=== PATIENT | female | born 1970 | race African-American/Black ===

== ENCOUNTER 2018-12-30 19:25 | Inpatient (IN) ==
[2018-12-30 20:16] LABS: Basophils % 0.3 % (0.0-0.8); Eosinophils % 0.5 % (0.00-10.9); Hematocrit 36.6 VOL% (35.7-47.0); Hemoglobin 11.3 GM/DL (12.0-16.0); Immature Granulocytes % 0.5 %; Immature Granulocytes Absolute 0.03 #; Lymphocytes # 2.3 10*3/uL (1.4-4.0); Lymphocytes % 35.7 % (21.3-54.2); Mean Corpuscular HGB Conc 30.9 GM/DL (32-36); Mean Corpuscular Volume 92.4 FL (87-102); Monocytes % 9.2 % (1.7-12.7); Neutrophils % 53.8 % (38.7-73.9); Platelet Count 304 T/CUMM (130-400); Red Blood Count 3.96 MC/CUMM (3.8-5.5); Red Cell Distribution Width 13.7 % (9.3-17.3); White Blood Count 6.5 T/CUMM (4-12)
[2018-12-30] MEDS ORDERED: methylPREDNISolone SOD SUC 125 MG/2 ML VIAL IV STA (20:21)
[2018-12-30] MEDS ORDERED: ALBUTEROL/IPRATROPIUM 3 ML NEB RESP TX STA (20:21)
[2018-12-30 20:38] LABS: Albumin 3.6 G/DL (3.4-5.0); Bilirubin,Total 1.2 MG/DL (0.2-1.0); Calcium 8.9 MG/DL (8.5-10.1); Osmolality,Calculated 281.1 MOS/KG (273-304); Total Protein 7.5 G/DL (6.4-8.3)
[2018-12-30] MEDS ORDERED: ASPIRIN EC 325 MG TABLET PO STA (21:02)
[2018-12-30] MEDS ORDERED: SODIUM CHLORIDE 0.9% 1,000 ML IV STA (22:57)
[2018-12-31] MEDS ORDERED: MORPHINE 4 MG/1 ML VIAL IV PRN (01:12)
[2018-12-31] MEDS ORDERED: NICOTINE 21 MG/24 HR PATCH TRANSDERM PRN (01:12)
[2018-12-31] MEDS ORDERED: guaiFENesin/DM ER 600-30 MG TABLET PO PRN (01:12)
[2018-12-31] MEDS ORDERED: BISACODYL 5 MG TABLET PO PRN (01:12)
[2018-12-31] MEDS ORDERED: ONDANSETRON 4 MG/2 ML VIAL IV PRN (01:12)
[2018-12-31] MEDS ORDERED: diphenhydrAMINE CAP 25 MG CAPSULE PO PRN (01:12)
[2018-12-31] MEDS: FUROSEMIDE 40 MG/4 ML VIAL IV SCH ×2 (03:02→13:25)
[2018-12-31] MEDS: cefTRIAXone 1,000 MG in SYRINGE 1 EACH IV SCH ×2 (03:43→13:26)
[2018-12-31] MEDS: ALBUTEROL/IPRATROPIUM 3 ML NEB RESP TX SCH ×3 (07:21→19:34)
[2018-12-31] MEDS ORDERED: LISINOPRIL 5 MG TABLET PO SCH (09:00)
[2018-12-31] MEDS: PANTOPRAZOLE 40 MG TABLET PO SCH (09:05)
[2018-12-31] MEDS: CARVEDILOL 3.125 MG TABLET PO SCH ×2 (09:05→21:08)
[2018-12-31] MEDS: POTASSIUM CHLORIDE 20 MEQ TABLET PO SCH (09:05)
[2019-01-01] MEDS: ALBUTEROL/IPRATROPIUM 3 ML NEB RESP TX SCH ×4 (00:30→18:46)
[2019-01-01] MEDS: FUROSEMIDE 40 MG/4 ML VIAL IV SCH ×2 (00:43→13:56)
[2019-01-01] MEDS: cefTRIAXone 1,000 MG in SYRINGE 1 EACH IV SCH ×2 (01:28→13:56)
[2019-01-01 05:52] LABS: Basophils % 0.4 % (0.0-0.8); Eosinophils % 0.4 % (0.00-10.9); Hematocrit 38.7 VOL% (35.7-47.0); Hemoglobin 11.6 GM/DL (12.0-16.0); Immature Granulocytes % 0.2 %; Immature Granulocytes Absolute 0.02 #; Lymphocytes # 2.6 10*3/uL (1.4-4.0); Lymphocytes % 32.8 % (21.3-54.2); Mean Corpuscular Volume 93.9 FL (87-102); Mean Platelet Volume 10.2 FL (9.6-12.0); Monocytes % 10.9 % (1.7-12.7); Neutrophils % 55.3 % (38.7-73.9); Platelet Count 306 T/CUMM (130-400); Red Blood Count 4.12 MC/CUMM (3.8-5.5); Red Cell Distribution Width 13.8 % (9.3-17.3); White Blood Count 8.1 T/CUMM (4-12)
[2019-01-01 06:07] LABS: Calcium 8.6 MG/DL (8.5-10.1); Osmolality,Calculated 286.1 MOS/KG (273-304)
[2019-01-01] MEDS: POTASSIUM CHLORIDE 20 MEQ TABLET PO SCH (08:11)
[2019-01-01] MEDS: SPIRONOLACTONE 25 MG TABLET PO SCH (08:11)
[2019-01-01] MEDS: PANTOPRAZOLE 40 MG TABLET PO SCH (08:11)
[2019-01-01] MEDS: CARVEDILOL 3.125 MG TABLET PO SCH ×2 (08:11→20:03)
[2019-01-01] MEDS: ACETAMINOPHEN 325 MG TABLET PO PRN (17:13)
[2019-01-01] MEDS: SACUBITRIL/VALSARTAN 49-51 MG TABLET PO SCH (20:03)
[2019-01-02] MEDS: ALBUTEROL/IPRATROPIUM 3 ML NEB RESP TX SCH ×4 (00:48→18:40)
[2019-01-02] MEDS: cefTRIAXone 1,000 MG in SYRINGE 1 EACH IV SCH (02:04)
[2019-01-02] MEDS: FUROSEMIDE 40 MG/4 ML VIAL IV SCH (02:10)
[2019-01-02 05:28] LABS: Basophils % 0.6 % (0.0-0.8); Eosinophils # 0.1 10*3/uL (0.0-0.87); Eosinophils % 1.3 % (0.00-10.9); Hematocrit 42.6 VOL% (35.7-47.0); Hemoglobin 13.3 GM/DL (12.0-16.0); Immature Granulocytes % 0.3 %; Immature Granulocytes Absolute 0.02 #; Lymphocytes # 2.8 10*3/uL (1.4-4.0); Lymphocytes % 45.1 % (21.3-54.2); Mean Corpuscular HGB Conc 31.2 GM/DL (32-36); Mean Corpuscular Volume 92.4 FL (87-102); Mean Platelet Volume 10.3 FL (9.6-12.0); Monocytes % 12.1 % (1.7-12.7); Neutrophils % 40.6 % (38.7-73.9); Platelet Count 350 T/CUMM (130-400); Red Blood Count 4.61 MC/CUMM (3.8-5.5); Red Cell Distribution Width 13.8 % (9.3-17.3); White Blood Count 6.3 T/CUMM (4-12)
[2019-01-02 05:48] LABS: Calcium 8.8 MG/DL (8.5-10.1); Osmolality,Calculated 276.5 MOS/KG (273-304)
[2019-01-02] MEDS: POTASSIUM CHLORIDE 20 MEQ TABLET PO SCH (08:24)
[2019-01-02] MEDS: PANTOPRAZOLE 40 MG TABLET PO SCH (08:24)
[2019-01-02] MEDS: CARVEDILOL 3.125 MG TABLET PO SCH ×2 (08:25→21:32)
[2019-01-02] MEDS: ACETAMINOPHEN 325 MG TABLET PO PRN (08:26)
[2019-01-02] MEDS: SPIRONOLACTONE 25 MG TABLET PO SCH (08:29)
[2019-01-02] MEDS: SACUBITRIL/VALSARTAN 49-51 MG TABLET PO SCH ×2 (08:29→21:32)
[2019-01-02] MEDS: FUROSEMIDE 40 MG TABLET PO SCH (15:38)
[2019-01-03] MEDS: ALBUTEROL/IPRATROPIUM 3 ML NEB RESP TX SCH ×2 (00:35→07:14)
[2019-01-03 04:29] LABS: Basophils % 0.4 % (0.0-0.8); Eosinophils # 0.1 10*3/uL (0.0-0.87); Eosinophils % 1.3 % (0.00-10.9); Hematocrit 42.2 VOL% (35.7-47.0); Immature Granulocytes % 0.3 %; Immature Granulocytes Absolute 0.02 #; Lymphocytes # 2.7 10*3/uL (1.4-4.0); Lymphocytes % 37.3 % (21.3-54.2); Mean Corpuscular HGB Conc 30.8 GM/DL (32-36); Mean Corpuscular Volume 93.4 FL (87-102); Monocytes % 11.7 % (1.7-12.7); Platelet Count 348 T/CUMM (130-400); Red Blood Count 4.52 MC/CUMM (3.8-5.5); Red Cell Distribution Width 13.8 % (9.3-17.3); White Blood Count 7.2 T/CUMM (4-12)
[2019-01-03 04:49] LABS: Calcium 9.1 MG/DL (8.5-10.1); Osmolality,Calculated 282.3 MOS/KG (273-304)
[2019-01-03] MEDS ORDERED: cefTRIAXone 1,000 MG in SYRINGE 1 EACH IV SCH (09:00)
[2019-01-03] MEDS: SACUBITRIL/VALSARTAN 49-51 MG TABLET PO SCH (10:32)
[2019-01-03] MEDS: CARVEDILOL 3.125 MG TABLET PO SCH (10:32)
[2019-01-03] MEDS: PANTOPRAZOLE 40 MG TABLET PO SCH (10:32)
[2019-01-03] MEDS: SPIRONOLACTONE 25 MG TABLET PO SCH (10:32)
[2019-01-03] MEDS: POTASSIUM CHLORIDE 20 MEQ TABLET PO SCH (10:32)
[2019-01-03] MEDS: FUROSEMIDE 40 MG TABLET PO SCH (10:32)
[2019-01-03 11:40] VITALS: BP 103/68
== END 2019-01-03 13:34 | disposition home or self-care (01) | DRG 292 ==
LOC: N.EDINP 19:25 → N.ED 19:25 → SUATTDRO 12-31 01:12 → N.5E 12-31 01:46
PROVIDERS: ATTEND Internal Medicine

== ENCOUNTER 2019-07-09 01:17 | Inpatient (IN) ==
[2019-07-09] MEDS ORDERED: INFLUENZA VIRUS VACCINE 0.5 ML SYRINGE IM ONE (04:04)
[2019-07-09] MEDS ORDERED: ALBUTEROL/IPRATROPIUM 3 ML NEB RESP TX PRN (05:41)
[2019-07-09] MEDS ORDERED: FUROSEMIDE 40 MG/4 ML VIAL IV ONE (05:42)
[2019-07-09 05:51] LABS: Basophils % 0.4 % (0.0-0.8); Eosinophils % 0.7 % (0.00-10.9); Hematocrit 34.1 VOL% (35.7-47.0); Hemoglobin 10.5 GM/DL (12.0-16.0); Immature Granulocytes % 0.2 %; Immature Granulocytes Absolute 0.01 #; Lymphocytes # 1.9 10*3/uL (1.4-4.0); Lymphocytes % 35.4 % (21.3-54.2); Mean Corpuscular HGB Conc 30.8 GM/DL (32-36); Mean Corpuscular Volume 91.9 FL (87-102); Mean Platelet Volume 10.2 FL (9.6-12.0); Monocytes % 9.7 % (1.7-12.7); Neutrophils % 53.6 % (38.7-73.9); Platelet Count 248 T/CUMM (130-400); Red Blood Count 3.71 MC/CUMM (3.8-5.5); Red Cell Distribution Width 15.6 % (9.3-17.3); White Blood Count 5.5 T/CUMM (4-12)
[2019-07-09] MEDS ORDERED: MAGNESIUM SULF RIDER 4 GM in PREMIX 1 EACH IV PRN (06:00)
[2019-07-09] MEDS ORDERED: MAGNESIUM SULF RIDER 2 GM in PREMIX 1 EACH IV PRN (06:00)
[2019-07-09] MEDS ORDERED: methylPREDNISolone SOD SUC 125 MG/2 ML VIAL IV ONE (06:00)
[2019-07-09] MEDS ORDERED: ALBUTEROL 2.5 MG/3 ML NEB RESP TX PRN (06:01)
[2019-07-09] MEDS ORDERED: DOCUSATE SODIUM 100 MG CAPSULE PO PRN (06:01)
[2019-07-09] MEDS ORDERED: ONDANSETRON 4 MG/2 ML VIAL IV PRN (06:01)
[2019-07-09] MEDS ORDERED: ALBUTEROL/IPRATROPIUM 3 ML NEB RESP TX STA (06:19)
[2019-07-09 06:22] LABS: Albumin 3.7 G/DL (3.4-5.0); Bilirubin,Total 2.3 MG/DL (0.2-1.0); Calcium 8.8 MG/DL (8.5-10.1); Osmolality,Calculated 278.4 MOS/KG (273-304); Total Protein 8.2 G/DL (6.4-8.3)
[2019-07-09 06:28] LABS: Apearance,Urine CLEAR (Clear); Bilirubin,Urine Negative (Negative); Blood, Urine Negative (Negative); Glucose,Urine (UA) Negative (Negative); Hyaline Casts,Urine 8 /LPF (0-3); Ketones,Urine Negative (Negative); Mucus,Urine Occasional /LPF (Occasional); Nitrite,Urine Negative (Negative); Protein,Urine 30 MG/DL; RBC,Urine 1 /HPF (0-4); Squamous Epithelial Cell,Urine Occasional /HPF (0-10); Urine Color Yellow (Yellow); Urine Specific Gravity 1.012 (1.001-1.035); Urine Urobilinogen < 2.0 EU/DL (0.2-1.0); WBC,Urine <1 /HPF (0-6)
[2019-07-09] MEDS: ENOXAPARIN 40 MG/0.4 ML SYRINGE SUBCUT SCH (06:37)
[2019-07-09] MEDS: ALBUTEROL/IPRATROPIUM 3 ML NEB RESP TX SCH ×3 (07:55→19:43)
[2019-07-09] MEDS: carvediloL 6.25 MG TABLET PO SCH ×2 (09:31→17:20)
[2019-07-09] MEDS: SACUBITRIL/VALSARTAN 49-51 MG TABLET PO SCH ×2 (09:31→21:39)
[2019-07-09] MEDS: PANTOPRAZOLE 40 MG TABLET PO SCH (09:31)
[2019-07-09] MEDS: POTASSIUM CHLORIDE 20 MEQ TABLET PO PRN ×3 (09:31→14:00)
[2019-07-09] MEDS: ASPIRIN EC 81 MG TABLET PO SCH (09:31)
[2019-07-09] MEDS: FLECAINIDE 100 MG TABLET PO SCH ×2 (09:42→21:39)
[2019-07-09] MEDS: FUROSEMIDE 40 MG/4 ML VIAL IV SCH (17:20)
[2019-07-09] MEDS: ACETAMINOPHEN 325 MG TABLET PO PRN ×2 (18:35→23:49)
[2019-07-09] MEDS ORDERED: methylPREDNISolone SOD SUC 40 MG/1 ML VIAL IM SCH (19:00)
[2019-07-09] MEDS: methylPREDNISolone SOD SUC 40 MG/1 ML VIAL IV SCH (19:24)
[2019-07-10] MEDS: ALBUTEROL/IPRATROPIUM 3 ML NEB RESP TX SCH ×5 (00:41→20:25)
[2019-07-10 05:16] LABS: Basophils % 0.1 % (0.0-0.8); Hematocrit 37.3 VOL% (35.7-47.0); Hemoglobin 11.5 GM/DL (12.0-16.0); Immature Granulocytes % 0.3 %; Immature Granulocytes Absolute 0.03 #; Lymphocytes # 0.9 10*3/uL (1.4-4.0); Mean Corpuscular HGB Conc 30.8 GM/DL (32-36); Mean Corpuscular Volume 92.8 FL (87-102); Mean Platelet Volume 9.9 FL (9.6-12.0); Neutrophils % 84.6 % (38.7-73.9); Platelet Count 261 T/CUMM (130-400); Red Blood Count 4.02 MC/CUMM (3.8-5.5); Red Cell Distribution Width 15.2 % (9.3-17.3)
[2019-07-10 05:50] LABS: Calcium 8.6 MG/DL (8.5-10.1); Osmolality,Calculated 285.3 MOS/KG (273-304)
[2019-07-10 05:54] LABS: Calcium 8.5 MG/DL (8.5-10.1); Osmolality,Calculated 281.5 MOS/KG (273-304); Risk Ratio 2.32; VLDL CHOLESTEROL 18.6 MG/DL
[2019-07-10] MEDS: ENOXAPARIN 40 MG/0.4 ML SYRINGE SUBCUT SCH (06:17)
[2019-07-10] MEDS: methylPREDNISolone SOD SUC 40 MG/1 ML VIAL IV SCH ×2 (06:31→21:18)
[2019-07-10] MEDS: SACUBITRIL/VALSARTAN 49-51 MG TABLET PO SCH ×2 (08:47→21:21)
[2019-07-10] MEDS: carvediloL 6.25 MG TABLET PO SCH ×2 (08:47→17:51)
[2019-07-10] MEDS: PANTOPRAZOLE 40 MG TABLET PO SCH (08:47)
[2019-07-10] MEDS: FUROSEMIDE 40 MG/4 ML VIAL IV SCH ×2 (08:48→17:51)
[2019-07-10] MEDS: FLECAINIDE 100 MG TABLET PO SCH ×2 (08:48→21:21)
[2019-07-10] MEDS: ASPIRIN EC 81 MG TABLET PO SCH (08:48)
[2019-07-11] MEDS: ALBUTEROL/IPRATROPIUM 3 ML NEB RESP TX SCH ×4 (02:00→20:48)
[2019-07-11 05:59] LABS: Basophils % 0.1 % (0.0-0.8); Eosinophils % 0.1 % (0.00-10.9); Hematocrit 39.9 VOL% (35.7-47.0); Hemoglobin 12.4 GM/DL (12.0-16.0); Immature Granulocytes % 0.5 %; Immature Granulocytes Absolute 0.06 #; Lymphocytes # 1.1 10*3/uL (1.4-4.0); Mean Corpuscular HGB Conc 31.1 GM/DL (32-36); Mean Corpuscular Volume 91.9 FL (87-102); Monocytes % 4.4 % (1.7-12.7); Neutrophils % 85.9 % (38.7-73.9); Platelet Count 304 T/CUMM (130-400); Red Blood Count 4.34 MC/CUMM (3.8-5.5); Red Cell Distribution Width 15.4 % (9.3-17.3); White Blood Count 12.7 T/CUMM (4-12)
[2019-07-11 06:32] LABS: Osmolality,Calculated 277.8 MOS/KG (273-304)
[2019-07-11] MEDS: ENOXAPARIN 40 MG/0.4 ML SYRINGE SUBCUT SCH (06:51)
[2019-07-11] MEDS: FLECAINIDE 100 MG TABLET PO SCH (08:57)
[2019-07-11] MEDS: ASPIRIN EC 81 MG TABLET PO SCH (08:57)
[2019-07-11] MEDS: SACUBITRIL/VALSARTAN 49-51 MG TABLET PO SCH ×2 (08:57→20:39)
[2019-07-11] MEDS: PANTOPRAZOLE 40 MG TABLET PO SCH (08:58)
[2019-07-11] MEDS: FUROSEMIDE 40 MG/4 ML VIAL IV SCH ×2 (08:58→16:26)
[2019-07-11] MEDS: methylPREDNISolone SOD SUC 40 MG/1 ML VIAL IV SCH ×2 (09:01→20:39)
[2019-07-11] MEDS: carvediloL 6.25 MG TABLET PO SCH ×2 (09:10→16:26)
[2019-07-12] MEDS: ALBUTEROL/IPRATROPIUM 3 ML NEB RESP TX SCH ×2 (01:28→07:07)
[2019-07-12 05:17] LABS: Basophils % 0.1 % (0.0-0.8); Eosinophils % 0.1 % (0.00-10.9); Hematocrit 44.8 VOL% (35.7-47.0); Hemoglobin 13.7 GM/DL (12.0-16.0); Immature Granulocytes % 0.3 %; Immature Granulocytes Absolute 0.04 #; Lymphocytes # 2.5 10*3/uL (1.4-4.0); Mean Corpuscular HGB Conc 30.6 GM/DL (32-36); Mean Corpuscular Volume 91.8 FL (87-102); Mean Platelet Volume 9.8 FL (9.6-12.0); Monocytes % 11.8 % (1.7-12.7); Neutrophils % 70.7 % (38.7-73.9); Platelet Count 350 T/CUMM (130-400); Red Blood Count 4.88 MC/CUMM (3.8-5.5); Red Cell Distribution Width 15.7 % (9.3-17.3); White Blood Count 14.7 T/CUMM (4-12)
[2019-07-12 05:37] LABS: Calcium 8.8 MG/DL (8.5-10.1)
[2019-07-12] MEDS ORDERED: ALBUTEROL 0.63 MG/3 ML NEB RESP TX PRN (07:41)
[2019-07-12] MEDS ORDERED: LEVALBUTEROL 0.31 MG/3 ML NEB RESP TX PRN (08:26)
[2019-07-12] MEDS: ASPIRIN EC 81 MG TABLET PO SCH (08:57)
[2019-07-12] MEDS: ENOXAPARIN 40 MG/0.4 ML SYRINGE SUBCUT SCH (08:58)
[2019-07-12] MEDS: FUROSEMIDE 40 MG TABLET PO SCH ×2 (08:58→16:20)
[2019-07-12] MEDS: SACUBITRIL/VALSARTAN 49-51 MG TABLET PO SCH ×2 (08:58→20:51)
[2019-07-12] MEDS: carvediloL 6.25 MG TABLET PO SCH ×2 (08:58→16:20)
[2019-07-12] MEDS: PANTOPRAZOLE 40 MG TABLET PO SCH (08:58)
[2019-07-12] MEDS: methylPREDNISolone SOD SUC 40 MG/1 ML VIAL IV SCH ×2 (08:58→20:52)
[2019-07-13] MEDS: ENOXAPARIN 40 MG/0.4 ML SYRINGE SUBCUT SCH (05:54)
[2019-07-13] MEDS: FUROSEMIDE 40 MG TABLET PO SCH ×2 (08:36→16:37)
[2019-07-13] MEDS: ASPIRIN EC 81 MG TABLET PO SCH (08:37)
[2019-07-13] MEDS: PANTOPRAZOLE 40 MG TABLET PO SCH (08:37)
[2019-07-13] MEDS: methylPREDNISolone SOD SUC 40 MG/1 ML VIAL IV SCH (08:37)
[2019-07-13] MEDS: carvediloL 6.25 MG TABLET PO SCH ×2 (08:37→16:36)
[2019-07-14] MEDS: ENOXAPARIN 40 MG/0.4 ML SYRINGE SUBCUT SCH (07:06)
[2019-07-14] MEDS ORDERED: predniSONE 20 MG TABLET PO SCH (09:00)
[2019-07-14] MEDS ORDERED: FUROSEMIDE 40 MG TABLET PO SCH (09:00)
[2019-07-14] MEDS: carvediloL 6.25 MG TABLET PO SCH (09:55)
[2019-07-14] MEDS: ASPIRIN EC 81 MG TABLET PO SCH (09:55)
[2019-07-14] MEDS: PANTOPRAZOLE 40 MG TABLET PO SCH (09:56)
[2019-07-14] MEDS ORDERED: carvediloL 3.125 MG TABLET PO SCH (14:16)
[2019-07-14 17:03] VITALS: BP 128/98
== END 2019-07-14 18:44 | disposition home health service (06) | DRG 292 ==
LOC: N.CC 03:09 → SUATTDRO 03:09 → N.TELEN 07-11 12:24
PROVIDERS: ADMIT Internal Medicine; ATTEND Internal Medicine

== ENCOUNTER 2020-09-15 14:12 | Inpatient (IN) ==
[2020-09-15] MEDS ORDERED: FUROSEMIDE 40 MG/4 ML VIAL IV STA (14:44)
[2020-09-15 15:23] LABS: Basophils % 0.5 % (0.0-0.8); Hematocrit 36.5 VOL% (35.7-47.0); Hemoglobin 11.3 GM/DL (12.0-16.0); Immature Granulocytes % 0.3 %; Immature Granulocytes Absolute 0.01 #; Lymphocytes # 1.3 10*3/uL (1.4-4.0); Mean Corpuscular Volume 94.1 FL (87-102); Mean Platelet Volume 10.3 FL (9.6-12.0); Monocytes % 9.1 % (1.7-12.7); Neutrophils % 55.1 % (38.7-73.9); Platelet Count 270 T/CUMM (130-400); Red Blood Count 3.88 MC/CUMM (3.8-5.5); Red Cell Distribution Width 13.4 % (9.3-17.3); White Blood Count 3.7 T/CUMM (4-12)
[2020-09-15 15:53] LABS: Albumin 3.4 G/DL (3.4-5.0); Bilirubin,Total 0.6 MG/DL (0.2-1.0); Calcium 8.3 MG/DL (8.5-10.1); Osmolality,Calculated 269.1 MOS/KG (273-304); Potassium 3.7 MMOL/L (3.5-5.1); Total Protein 8.4 G/DL (6.4-8.3)
[2020-09-15 15:56] LABS: Bilirubin,Urine Negative (Negative); Blood, Urine Small mg/dL (Negative); Glucose,Urine (UA) Negative (Negative); Ketones,Urine Negative (Negative); Nitrite,Urine Negative (Negative); Protein,Urine Negative; RBC,Urine <1 /HPF (0-4); Squamous Epithelial Cell,Urine Occasional /HPF (0-10); Urine Appearance CLEAR (Clear); Urine Color Yellow (Yellow); Urine Specific Gravity 1.006 (1.001-1.035); Urine Urobilinogen < 2.0 EU/DL (0.2-1.0); WBC,Urine 1 /HPF (0-6)
[2020-09-15] MEDS ORDERED: ALBUTEROL 2.5 MG/3 ML NEB RESP TX STA (16:09)
[2020-09-15] MEDS ORDERED: ACETAMINOPHEN 325 MG TABLET PO PRN (16:49)
[2020-09-15] MEDS ORDERED: DEXTROSE 50% 25 GM/50 ML VIAL IV PRN (16:49)
[2020-09-15] MEDS ORDERED: GLUCAGON 1 MG VIAL IM PRN (16:49)
[2020-09-15] MEDS ORDERED: ONDANSETRON 4 MG/2 ML VIAL IV PRN (16:49)
[2020-09-15] MEDS ORDERED: guaiFENesin/DM ER 600-30 MG TABLET PO PRN (16:49)
[2020-09-15] MEDS ORDERED: hydrALAZINE 20 MG/1 ML VIAL IV PRN (16:49)
[2020-09-15] MEDS ORDERED: MAGNESIUM SULF RIDER 4 GM in PREMIX 1 EACH IV PRN (16:54)
[2020-09-15] MEDS ORDERED: MAGNESIUM SULF RIDER 2 GM in PREMIX 1 EACH IV PRN (16:54)
[2020-09-15 16:58] LABS: Ferritin 209.6 ng/ml (8-252)
[2020-09-15] MEDS ORDERED: methylPREDNISolone SOD SUC 40 MG/1 ML VIAL IV SCH (17:00)
[2020-09-15] MEDS ORDERED: INFLUENZA VIRUS VACCINE 0.5 ML SYRINGE IM ONE (18:23)
[2020-09-15] MEDS: FAMOTIDINE 20 MG TABLET PO SCH (21:30)
[2020-09-15] MEDS: ENOXAPARIN 40 MG/0.4 ML SYRINGE SUBCUT SCH (21:30)
[2020-09-15] MEDS: ASCORBIC ACID 500 MG TABLET PO SCH (21:30)
[2020-09-15] MEDS: SACUBITRIL/VALSARTAN 49-51 MG TABLET PO SCH (21:30)
[2020-09-15] MEDS: carvediloL 6.25 MG TABLET PO SCH (21:30)
[2020-09-16 05:56] LABS: Basophils % 0.2 % (0.0-0.8); Hematocrit 34.7 VOL% (35.7-47.0); Hemoglobin 11.1 GM/DL (12.0-16.0); Immature Granulocytes % 0.2 %; Immature Granulocytes Absolute 0.01 #; Lymphocytes # 1.3 10*3/uL (1.4-4.0); Mean Corpuscular Volume 93.5 FL (87-102); Mean Platelet Volume 10.2 FL (9.6-12.0); Monocytes % 9.5 % (1.7-12.7); Neutrophils % 58.1 % (38.7-73.9); Platelet Count 229 T/CUMM (130-400); Red Blood Count 3.71 MC/CUMM (3.8-5.5); Red Cell Distribution Width 13.2 % (9.3-17.3); White Blood Count 4.2 T/CUMM (4-12)
[2020-09-16 06:25] LABS: Ferritin 233.1 ng/ml (8-252)
[2020-09-16 06:28] LABS: Calcium 8.4 MG/DL (8.5-10.1); Osmolality,Calculated 269.1 MOS/KG (273-304); Potassium 3.1 MMOL/L (3.5-5.1); Risk Ratio 1.84; Thyroid Stimulating Hormone 1.02 uIU/ml (0.358-3.74); VLDL CHOLESTEROL 8.8 MG/DL
[2020-09-16 06:35] LABS: Anisocytosis 1+; Band Neutrophils 19 % (0-10); Lymphocytes 29 % (20-55); Platelet Estimate Normal; Segmented Neutrophils 38 % (50-85); Total Cells Counted 100
[2020-09-16 06:36] LABS: Macrocytosis 1+
[2020-09-16] MEDS ORDERED: PANTOPRAZOLE 40 MG TABLET PO SCH (09:00)
[2020-09-16] MEDS ORDERED: FUROSEMIDE 40 MG/4 ML VIAL IV SCH (09:00)
[2020-09-16] MEDS: DOCUSATE SODIUM 100 MG CAPSULE PO PRN (10:10)
[2020-09-16] MEDS: FAMOTIDINE 20 MG TABLET PO SCH ×2 (10:11→21:26)
[2020-09-16] MEDS: CHOLECALCIFEROL 1,000 UNIT TABLET PO SCH (10:11)
[2020-09-16] MEDS: ASPIRIN CHEW 81 MG TABLET PO SCH (10:11)
[2020-09-16] MEDS: CETIRIZINE 10 MG TABLET PO SCH (10:11)
[2020-09-16] MEDS: ASCORBIC ACID 500 MG TABLET PO SCH ×2 (10:11→21:26)
[2020-09-16] MEDS: carvediloL 6.25 MG TABLET PO SCH ×3 (10:11→17:27)
[2020-09-16] MEDS: SACUBITRIL/VALSARTAN 49-51 MG TABLET PO SCH ×2 (10:12→21:26)
[2020-09-16] MEDS: DEXAMETHASONE 4 MG/1 ML VIAL IV SCH (10:12)
[2020-09-16] MEDS: AZITHROMYCIN 250 MG TABLET PO SCH (10:13)
[2020-09-16] MEDS: ZINC GLUCONATE 50 MG TABLET PO SCH (10:13)
[2020-09-16] MEDS: POTASSIUM CHLORIDE 20 MEQ TABLET PO SCH ×2 (10:16→18:08)
[2020-09-16] MEDS ORDERED: MAGNESIUM SULF RIDER 2 GM in PREMIX 1 EACH IV ONE (11:29)
[2020-09-16] MEDS ORDERED: REMDESIVIR 200 MG in SODIUM CHLORIDE 0.9% 210 ML IV ONE (12:30)
[2020-09-16] MEDS: ENOXAPARIN 40 MG/0.4 ML SYRINGE SUBCUT SCH (21:26)
[2020-09-17] MEDS: ALBUTEROL INHALER 18 GM INH SCH ×4 (00:22→19:33)
[2020-09-17 05:50] LABS: Hematocrit 36.7 VOL% (35.7-47.0); Hemoglobin 11.5 GM/DL (12.0-16.0); Lymphocytes # 1.2 10*3/uL (1.4-4.0); Lymphocytes % 34.2 % (21.3-54.2); Mean Corpuscular HGB Conc 31.3 GM/DL (32-36); Mean Corpuscular Volume 93.4 FL (87-102); Mean Platelet Volume 10.1 FL (9.6-12.0); Monocytes % 12.9 % (1.7-12.7); Neutrophils % 52.9 % (38.7-73.9); Platelet Count 242 T/CUMM (130-400); Red Blood Count 3.93 MC/CUMM (3.8-5.5); Red Cell Distribution Width 13.2 % (9.3-17.3); White Blood Count 3.6 T/CUMM (4-12)
[2020-09-17 06:08] LABS: Calcium 8.1 MG/DL (8.5-10.1); Osmolality,Calculated 276.8 MOS/KG (273-304); Potassium 3.8 MMOL/L (3.5-5.1)
[2020-09-17 06:15] LABS: Ferritin 260.9 ng/ml (8-252)
[2020-09-17 06:26] LABS: Hypochromasia 1+; Lymphocytes 29 % (20-55); Microcytosis 1+; Platelet Estimate Adequate; Segmented Neutrophils 57 % (50-85); Total Cells Counted 100
[2020-09-17] MEDS: carvediloL 6.25 MG TABLET PO SCH ×2 (08:25→17:24)
[2020-09-17] MEDS: CHOLECALCIFEROL 1,000 UNIT TABLET PO SCH (08:25)
[2020-09-17] MEDS: DOCUSATE SODIUM 100 MG CAPSULE PO PRN (08:26)
[2020-09-17] MEDS: ZINC GLUCONATE 50 MG TABLET PO SCH (08:26)
[2020-09-17] MEDS: DEXAMETHASONE 4 MG/1 ML VIAL IV SCH (08:26)
[2020-09-17] MEDS: ASCORBIC ACID 500 MG TABLET PO SCH ×2 (08:26→21:05)
[2020-09-17] MEDS: AZITHROMYCIN 250 MG TABLET PO SCH (08:26)
[2020-09-17] MEDS: FAMOTIDINE 20 MG TABLET PO SCH ×2 (08:26→21:05)
[2020-09-17] MEDS: ASPIRIN CHEW 81 MG TABLET PO SCH (08:26)
[2020-09-17] MEDS: SACUBITRIL/VALSARTAN 49-51 MG TABLET PO SCH ×2 (08:28→21:06)
[2020-09-17] MEDS: REMDESIVIR 100 MG in SODIUM CHLORIDE 0.9% 100 ML IV SCH (08:29)
[2020-09-17] MEDS: POTASSIUM CHLORIDE 20 MEQ TABLET PO SCH (08:31)
[2020-09-17] MEDS: CETIRIZINE 10 MG TABLET PO SCH (08:44)
[2020-09-17] MEDS ORDERED: FUROSEMIDE 40 MG/4 ML VIAL IV SCH (09:00)
[2020-09-17] MEDS: ENOXAPARIN 40 MG/0.4 ML SYRINGE SUBCUT SCH (21:05)
[2020-09-18 04:21] LABS: Basophils % 0.2 % (0.0-0.8); Hematocrit 37.1 VOL% (35.7-47.0); Hemoglobin 11.7 GM/DL (12.0-16.0); Immature Granulocytes % 0.4 %; Immature Granulocytes Absolute 0.02 #; Lymphocytes # 1.4 10*3/uL (1.4-4.0); Lymphocytes % 28.4 % (21.3-54.2); Mean Corpuscular HGB Conc 31.5 GM/DL (32-36); Mean Corpuscular Volume 94.4 FL (87-102); Mean Platelet Volume 10.3 FL (9.6-12.0); Monocytes % 11.4 % (1.7-12.7); Neutrophils % 59.6 % (38.7-73.9); Platelet Count 252 T/CUMM (130-400); Red Blood Count 3.93 MC/CUMM (3.8-5.5); Red Cell Distribution Width 12.8 % (9.3-17.3); White Blood Count 4.9 T/CUMM (4-12)
[2020-09-18 04:51] LABS: Albumin 3.1 G/DL (3.4-5.0); Bilirubin,Total 0.5 MG/DL (0.2-1.0); Calcium 8.2 MG/DL (8.5-10.1); Ferritin 238.5 ng/ml (8-252); Osmolality,Calculated 276.1 MOS/KG (273-304); Potassium 3.6 MMOL/L (3.5-5.1); Total Protein 7.9 G/DL (6.4-8.3)
[2020-09-18] MEDS: ALBUTEROL INHALER 18 GM INH SCH ×4 (06:00→21:00)
[2020-09-18] MEDS: carvediloL 6.25 MG TABLET PO SCH ×2 (09:52→16:52)
[2020-09-18] MEDS: CHOLECALCIFEROL 1,000 UNIT TABLET PO SCH (09:53)
[2020-09-18] MEDS: POTASSIUM CHLORIDE 20 MEQ TABLET PO SCH (09:53)
[2020-09-18] MEDS: AZITHROMYCIN 250 MG TABLET PO SCH (09:53)
[2020-09-18] MEDS: ASPIRIN CHEW 81 MG TABLET PO SCH (09:53)
[2020-09-18] MEDS: ZINC GLUCONATE 50 MG TABLET PO SCH (09:54)
[2020-09-18] MEDS: ASCORBIC ACID 500 MG TABLET PO SCH ×2 (09:54→21:00)
[2020-09-18] MEDS: FAMOTIDINE 20 MG TABLET PO SCH ×2 (09:55→21:00)
[2020-09-18] MEDS: DEXAMETHASONE 4 MG/1 ML VIAL IV SCH (09:56)
[2020-09-18] MEDS: FUROSEMIDE 40 MG TABLET PO SCH (09:57)
[2020-09-18] MEDS: CETIRIZINE 10 MG TABLET PO SCH (09:58)
[2020-09-18] MEDS: SACUBITRIL/VALSARTAN 49-51 MG TABLET PO SCH ×2 (09:58→21:00)
[2020-09-18] MEDS: REMDESIVIR 100 MG in SODIUM CHLORIDE 0.9% 100 ML IV SCH (10:01)
[2020-09-18] MEDS: DOCUSATE SODIUM 100 MG CAPSULE PO PRN (15:00)
[2020-09-18] MEDS: ENOXAPARIN 40 MG/0.4 ML SYRINGE SUBCUT SCH (21:00)
[2020-09-19] MEDS: ALBUTEROL INHALER 18 GM INH SCH ×4 (04:00→19:47)
[2020-09-19 04:39] LABS: Basophils % 0.2 % (0.0-0.8); Hematocrit 38.7 VOL% (35.7-47.0); Hemoglobin 12.1 GM/DL (12.0-16.0); Immature Granulocytes % 0.6 %; Immature Granulocytes Absolute 0.03 #; Mean Corpuscular HGB Conc 31.3 GM/DL (32-36); Mean Corpuscular Volume 93.5 FL (87-102); Mean Platelet Volume 10.3 FL (9.6-12.0); Monocytes % 12.8 % (1.7-12.7); Neutrophils % 49.4 % (38.7-73.9); Platelet Count 285 T/CUMM (130-400); Red Blood Count 4.14 MC/CUMM (3.8-5.5); Red Cell Distribution Width 12.9 % (9.3-17.3); White Blood Count 5.4 T/CUMM (4-12)
[2020-09-19 05:00] LABS: Calcium 8.5 MG/DL (8.5-10.1); Potassium 3.9 MMOL/L (3.5-5.1)
[2020-09-19 05:06] LABS: Platelet Estimate Adequate
[2020-09-19] MEDS ORDERED: SACUBITRIL/VALSARTAN 49-51 MG TABLET PO SCH (09:00)
[2020-09-19] MEDS ORDERED: ASPIRIN EC 81 MG TABLET PO SCH (09:00)
[2020-09-19] MEDS: SACUBITRIL/VALSARTAN 49-51 MG TABLET PO SCH (09:25)
[2020-09-19] MEDS: DEXAMETHASONE 4 MG/1 ML VIAL IV SCH (09:35)
[2020-09-19] MEDS: CHOLECALCIFEROL 1,000 UNIT TABLET PO SCH (09:37)
[2020-09-19] MEDS: ASCORBIC ACID 500 MG TABLET PO SCH ×2 (09:37→21:47)
[2020-09-19] MEDS: ASPIRIN CHEW 81 MG TABLET PO SCH (09:37)
[2020-09-19] MEDS: ZINC GLUCONATE 50 MG TABLET PO SCH (09:37)
[2020-09-19] MEDS: POTASSIUM CHLORIDE 20 MEQ TABLET PO SCH (09:37)
[2020-09-19] MEDS: FUROSEMIDE 40 MG TABLET PO SCH (09:37)
[2020-09-19] MEDS: FAMOTIDINE 20 MG TABLET PO SCH ×2 (09:37→21:47)
[2020-09-19] MEDS: CETIRIZINE 10 MG TABLET PO SCH (09:37)
[2020-09-19] MEDS: carvediloL 6.25 MG TABLET PO SCH ×2 (09:37→16:45)
[2020-09-19] MEDS: AZITHROMYCIN 250 MG TABLET PO SCH (09:37)
[2020-09-19] MEDS: REMDESIVIR 100 MG in SODIUM CHLORIDE 0.9% 100 ML IV SCH (09:38)
[2020-09-19] MEDS: ENOXAPARIN 40 MG/0.4 ML SYRINGE SUBCUT SCH (21:47)
[2020-09-20] MEDS: SACUBITRIL/VALSARTAN 49-51 MG TABLET PO SCH ×2 (00:32→09:53)
[2020-09-20] MEDS: ALBUTEROL INHALER 18 GM INH SCH ×3 (00:40→15:12)
[2020-09-20 06:43] LABS: Basophils % 0.2 % (0.0-0.8); Hematocrit 37.1 VOL% (35.7-47.0); Hemoglobin 11.8 GM/DL (12.0-16.0); Immature Granulocytes % 0.3 %; Immature Granulocytes Absolute 0.02 #; Lymphocytes # 2.4 10*3/uL (1.4-4.0); Lymphocytes % 38.1 % (21.3-54.2); Mean Corpuscular HGB Conc 31.8 GM/DL (32-36); Mean Corpuscular Volume 92.3 FL (87-102); Mean Platelet Volume 10.3 FL (9.6-12.0); Monocytes % 8.5 % (1.7-12.7); Neutrophils % 52.9 % (38.7-73.9); Platelet Count 308 T/CUMM (130-400); Red Blood Count 4.02 MC/CUMM (3.8-5.5); White Blood Count 6.3 T/CUMM (4-12)
[2020-09-20 07:04] LABS: Platelet Estimate Adequate
[2020-09-20 07:06] LABS: Calcium 8.9 MG/DL (8.5-10.1); Osmolality,Calculated 275.7 MOS/KG (273-304); Potassium 4.1 MMOL/L (3.5-5.1)
[2020-09-20] MEDS: DEXAMETHASONE 4 MG/1 ML VIAL IV SCH (09:52)
[2020-09-20] MEDS: ASCORBIC ACID 500 MG TABLET PO SCH (09:52)
[2020-09-20] MEDS: ASPIRIN CHEW 81 MG TABLET PO SCH (09:53)
[2020-09-20] MEDS: FUROSEMIDE 40 MG TABLET PO SCH (09:53)
[2020-09-20] MEDS: carvediloL 6.25 MG TABLET PO SCH (09:53)
[2020-09-20] MEDS: FAMOTIDINE 20 MG TABLET PO SCH (09:53)
[2020-09-20] MEDS: POTASSIUM CHLORIDE 20 MEQ TABLET PO SCH (09:53)
[2020-09-20] MEDS: CETIRIZINE 10 MG TABLET PO SCH (09:53)
[2020-09-20] MEDS: CHOLECALCIFEROL 1,000 UNIT TABLET PO SCH (09:53)
[2020-09-20] MEDS: ZINC GLUCONATE 50 MG TABLET PO SCH (09:53)
[2020-09-20] MEDS: REMDESIVIR 100 MG in SODIUM CHLORIDE 0.9% 100 ML IV SCH (09:57)
[2020-09-20 15:40] VITALS: BP 99/67
== END 2020-09-20 17:55 | disposition home or self-care (01) | DRG 177 ==
LOC: N.ED 14:12 → N.EDINP 16:49 → SUATTDRO 16:49 → N.2E 17:38
PROVIDERS: ADMIT Internal Medicine; ATTEND Emergency Medicine

== ENCOUNTER 2020-12-28 12:17 | Inpatient (IN) ==
[2020-12-28 14:17] LABS: Basophils % 0.3 % (0.0-0.8); Eosinophils % 0.6 % (0.00-10.9); Hematocrit 37.4 VOL% (35.7-47.0); Hemoglobin 11.6 GM/DL (12.0-16.0); Immature Granulocytes % 0.3 %; Immature Granulocytes Absolute 0.02 #; Lymphocytes # 1.8 10*3/uL (1.4-4.0); Lymphocytes % 26.7 % (21.3-54.2); Mean Corpuscular Volume 93.7 FL (87-102); Mean Platelet Volume 10.5 FL (9.6-12.0); Monocytes % 9.9 % (1.7-12.7); Neutrophils % 62.2 % (38.7-73.9); Platelet Count 290 T/CUMM (130-400); Red Blood Count 3.99 MC/CUMM (3.8-5.5); Red Cell Distribution Width 13.9 % (9.3-17.3); White Blood Count 6.6 T/CUMM (4-12)
[2020-12-28 14:32] LABS: Albumin 3.8 G/DL (3.4-5.0); Bilirubin,Total 0.8 MG/DL (0.2-1.0); Calcium 8.8 MG/DL (8.5-10.1); Osmolality,Calculated 281.4 MOS/KG (273-304); Potassium 3.4 MMOL/L (3.5-5.1); Total Protein 7.9 G/DL (6.4-8.2)
[2020-12-28 15:17] LABS: Eosinophils 1 % (0-10); Lymphocytes 32 % (20-55); Segmented Neutrophils 60 % (50-85); Total Cells Counted 100
[2020-12-28 15:22] LABS: Atypical Lymphocytes Few; Platelet Estimate Normal
[2020-12-28] MEDS ORDERED: ONDANSETRON 4 MG/2 ML VIAL IV PRN (15:32)
[2020-12-28] MEDS ORDERED: GLUCAGON 1 MG VIAL IM PRN (15:32)
[2020-12-28] MEDS ORDERED: DEXTROSE 50% 25 GM/50 ML VIAL IV PRN (15:32)
[2020-12-28] MEDS ORDERED: MAGNESIUM SULF RIDER 2 GM/50 ML PREMIX IV PRN (15:32)
[2020-12-28] MEDS ORDERED: MAGNESIUM SULF RIDER 4 GM/100 ML PREMIX IV PRN (15:32)
[2020-12-28] MEDS: methylPREDNISolone SOD SUC 40 MG/1 ML VIAL IV SCH (16:23)
[2020-12-28] MEDS: ENOXAPARIN 40 MG/0.4 ML SYRINGE SUBCUT SCH (16:23)
[2020-12-28] MEDS: ALBUTEROL/IPRATROPIUM 3 ML NEB RESP TX SCH (19:17)
[2020-12-29] MEDS: ALBUTEROL/IPRATROPIUM 3 ML NEB RESP TX SCH ×4 (00:42→19:40)
[2020-12-29] MEDS: methylPREDNISolone SOD SUC 40 MG/1 ML VIAL IV SCH ×3 (01:43→17:00)
[2020-12-29 04:44] LABS: Basophils % 0.2 % (0.0-0.8); Hematocrit 37.3 VOL% (35.7-47.0); Hemoglobin 11.6 GM/DL (12.0-16.0); Immature Granulocytes % 0.3 %; Immature Granulocytes Absolute 0.02 #; Lymphocytes # 0.8 10*3/uL (1.4-4.0); Lymphocytes % 13.2 % (21.3-54.2); Mean Corpuscular HGB Conc 31.1 GM/DL (32-36); Mean Platelet Volume 10.4 FL (9.6-12.0); Monocytes % 2.9 % (1.7-12.7); Neutrophils % 83.4 % (38.7-73.9); Platelet Count 286 T/CUMM (130-400); Red Blood Count 4.01 MC/CUMM (3.8-5.5); Red Cell Distribution Width 13.6 % (9.3-17.3); White Blood Count 6.2 T/CUMM (4-12)
[2020-12-29 04:57] LABS: Calcium 9.2 MG/DL (8.5-10.1); Osmolality,Calculated 281.4 MOS/KG (273-304); Potassium 3.9 MMOL/L (3.5-5.1)
[2020-12-29] MEDS: ACETAMINOPHEN 325 MG TABLET PO PRN (04:59)
[2020-12-29] MEDS: ASPIRIN EC 81 MG TABLET PO SCH (09:17)
[2020-12-29] MEDS: PANTOPRAZOLE 40 MG TABLET PO SCH (09:17)
[2020-12-29] MEDS: INSULIN LISPRO 100 UNIT/ML SUBCUT SCH ×2 (12:34→16:59)
[2020-12-29] MEDS: ENOXAPARIN 40 MG/0.4 ML SYRINGE SUBCUT SCH (16:59)
[2020-12-30] MEDS: ALBUTEROL/IPRATROPIUM 3 ML NEB RESP TX SCH ×4 (00:50→19:30)
[2020-12-30] MEDS: methylPREDNISolone SOD SUC 40 MG/1 ML VIAL IV SCH ×3 (01:18→21:35)
[2020-12-30 06:39] LABS: Calcium 9.3 MG/DL (8.5-10.1); Osmolality,Calculated 283.4 MOS/KG (273-304); Potassium 4.2 MMOL/L (3.5-5.1)
[2020-12-30] MEDS: ASPIRIN EC 81 MG TABLET PO SCH (10:02)
[2020-12-30] MEDS: ACETAMINOPHEN 325 MG TABLET PO PRN (10:03)
[2020-12-30] MEDS: PANTOPRAZOLE 40 MG TABLET PO SCH (10:03)
[2020-12-30] MEDS: INSULIN LISPRO 100 UNIT/ML SUBCUT SCH ×3 (10:05→17:31)
[2020-12-30] MEDS: SACUBITRIL/VALSARTAN 49-51 MG TABLET PO SCH ×2 (10:31→21:34)
[2020-12-30] MEDS: ENOXAPARIN 40 MG/0.4 ML SYRINGE SUBCUT SCH (17:31)
[2020-12-31] MEDS: ALBUTEROL/IPRATROPIUM 3 ML NEB RESP TX SCH ×4 (00:03→20:22)
[2020-12-31 07:02] LABS: Calcium 9.1 MG/DL (8.5-10.1); Potassium 4.5 MMOL/L (3.5-5.1)
[2020-12-31 07:05] LABS: Osmolality,Calculated 286.4 MOS/KG (273-304)
[2020-12-31] MEDS: methylPREDNISolone SOD SUC 40 MG/1 ML VIAL IV SCH ×2 (08:37→21:08)
[2020-12-31] MEDS: ASPIRIN EC 81 MG TABLET PO SCH (08:37)
[2020-12-31] MEDS: INSULIN LISPRO 100 UNIT/ML SUBCUT SCH ×3 (08:37→17:06)
[2020-12-31] MEDS: PANTOPRAZOLE 40 MG TABLET PO SCH (08:38)
[2020-12-31] MEDS: SACUBITRIL/VALSARTAN 49-51 MG TABLET PO SCH ×2 (08:39→21:08)
[2020-12-31] MEDS ORDERED: MAGNESIUM CITRATE 300 ML BOTTLE PO ONE (10:25)
[2020-12-31] MEDS: ENOXAPARIN 40 MG/0.4 ML SYRINGE SUBCUT SCH (16:39)
[2020-12-31] MEDS: carvediloL 3.125 MG TABLET PO SCH (16:39)
[2021-01-01] MEDS: ALBUTEROL/IPRATROPIUM 3 ML NEB RESP TX SCH ×4 (00:57→19:33)
[2021-01-01 04:47] LABS: Basophils % 0.1 % (0.0-0.8); Eosinophils % 0.1 % (0.00-10.9); Hematocrit 39.7 VOL% (35.7-47.0); Hemoglobin 12.1 GM/DL (12.0-16.0); Immature Granulocytes % 0.6 %; Immature Granulocytes Absolute 0.07 #; Lymphocytes # 1.4 10*3/uL (1.4-4.0); Lymphocytes % 11.5 % (21.3-54.2); Mean Corpuscular HGB Conc 30.5 GM/DL (32-36); Mean Corpuscular Volume 94.5 FL (87-102); Mean Platelet Volume 10.5 FL (9.6-12.0); Monocytes % 4.5 % (1.7-12.7); Neutrophils % 83.2 % (38.7-73.9); Platelet Count 321 T/CUMM (130-400); White Blood Count 11.9 T/CUMM (4-12)
[2021-01-01 05:05] LABS: Calcium 8.9 MG/DL (8.5-10.1); Potassium 4.4 MMOL/L (3.5-5.1)
[2021-01-01 05:08] LABS: Osmolality,Calculated 277.8 MOS/KG (273-304)
[2021-01-01] MEDS: SACUBITRIL/VALSARTAN 49-51 MG TABLET PO SCH (09:20)
[2021-01-01] MEDS: ASPIRIN EC 81 MG TABLET PO SCH (09:20)
[2021-01-01] MEDS: carvediloL 3.125 MG TABLET PO SCH (09:20)
[2021-01-01] MEDS: PANTOPRAZOLE 40 MG TABLET PO SCH (09:20)
[2021-01-01] MEDS: INSULIN LISPRO 100 UNIT/ML SUBCUT SCH ×3 (09:21→16:15)
[2021-01-01] MEDS: methylPREDNISolone SOD SUC 40 MG/1 ML VIAL IV SCH (09:22)
[2021-01-01] MEDS ORDERED: SPIRONOLACTONE 25 MG TABLET PO SCH (11:00)
[2021-01-01] MEDS ORDERED: LORazepam 2 MG/1 ML VIAL IV ONE (11:26)
[2021-01-01] MEDS: FUROSEMIDE 40 MG/4 ML VIAL IV SCH ×2 (13:56→16:15)
[2021-01-01 15:47] VITALS: BP 95/68
[2021-01-01] MEDS: ENOXAPARIN 40 MG/0.4 ML SYRINGE SUBCUT SCH (16:14)
[2021-01-01] MEDS ORDERED: carvediloL 3.125 MG TABLET PO SCH (17:00)
== END 2021-01-01 19:45 | disposition home or self-care (01) | DRG 315 ==
LOC: N.ED 12:17 → SUATTDRO 15:32 → N.EDINP 15:32 → N.TELES 16:01
PROVIDERS: ADMIT Phlebology; ATTEND Internal Medicine

== ENCOUNTER 2021-02-20 15:35 | Inpatient (IN) ==
[2021-02-20] MEDS ORDERED: methylPREDNISolone SOD SUC 125 MG/2 ML VIAL IV STA (16:27)
[2021-02-20 16:57] LABS: ABG Base Excess 3.1 MMOL/L (-2.5-2.5); ABG HCO3 27.1 MMOL/L (20-26); ABG Oxygen Saturation 94.5 % (95-100); ABG PCO2 60.1 MM HG (35-48); ABG PH 7.317 (7.35-7.45); ABG PO2 83.3 MM HG (80-95); ABG TCO2 27.9 MMOL/L (23-27)
[2021-02-20 17:05] LABS: Basophils % 0.4 % (0.0-0.8); Eosinophils % 0.6 % (0.00-10.9); Hematocrit 37.7 VOL% (35.7-47.0); Hemoglobin 11.3 GM/DL (12.0-16.0); Immature Granulocytes % 0.4 %; Immature Granulocytes Absolute 0.02 #; Lymphocytes # 1.4 10*3/uL (1.4-4.0); Mean Platelet Volume 10.4 FL (9.6-12.0); Monocytes % 11.7 % (1.7-12.7); Neutrophils % 61.9 % (38.7-73.9); Platelet Count 259 T/CUMM (130-400); Red Blood Count 4.01 MC/CUMM (3.8-5.5); Red Cell Distribution Width 14.1 % (9.3-17.3); White Blood Count 5.5 T/CUMM (4-12)
[2021-02-20 17:39] LABS: Albumin 3.8 G/DL (3.4-5.0); Calcium 8.7 MG/DL (8.5-10.1); Osmolality,Calculated 281.3 MOS/KG (273-304); Potassium 3.7 MMOL/L (3.5-5.1); Total Protein 8.1 G/DL (6.4-8.2)
[2021-02-20 18:24] LABS: Eosinophils 3 % (0-10); Lymphocytes 31 % (20-55); Segmented Neutrophils 61 % (50-85); Total Cells Counted 100
[2021-02-20 18:25] LABS: Atypical Lymphocytes Few; Hypochromasia Slight; Microcytosis Slight; Platelet Estimate Increased; Reactive Lymphocytes Few
[2021-02-20] MEDS ORDERED: CALCIUM CARBONATE CHEW 500 MG TABLET PO PRN (19:25)
[2021-02-20] MEDS ORDERED: diphenhydrAMINE CAP 25 MG CAPSULE PO PRN (19:25)
[2021-02-20] MEDS ORDERED: ONDANSETRON 4 MG/2 ML VIAL IV PRN (19:25)
[2021-02-20] MEDS ORDERED: DEXTROSE 50% 25 GM/50 ML VIAL IV PRN (19:31)
[2021-02-20] MEDS ORDERED: GLUCAGON 1 MG VIAL IM PRN (19:31)
[2021-02-20] MEDS: INSULIN REGULAR 100 UNIT/ML SUBCUT SCH (23:30)
[2021-02-20] MEDS: ENOXAPARIN 40 MG/0.4 ML SYRINGE SUBCUT SCH (23:37)
[2021-02-21] MEDS: ALBUTEROL/IPRATROPIUM 3 ML NEB RESP TX SCH ×4 (00:26→19:30)
[2021-02-21 02:43] LABS: ABG Base Excess 3.2 MMOL/L (-2.5-2.5); ABG HCO3 27.2 MMOL/L (20-26); ABG Oxygen Saturation 96.3 % (95-100); ABG PCO2 58.7 MM HG (35-48); ABG PH 7.328 (7.35-7.45); ABG PO2 90.5 MM HG (80-95); ABG TCO2 27.5 MMOL/L (23-27)
[2021-02-21] MEDS ORDERED: PNEUMOCOCCAL VACCINE (23 VALENT) 0.5 ML VIAL IM ONE (03:56)
[2021-02-21 06:18] LABS: Basophils % 0.1 % (0.0-0.8); Hematocrit 39.5 VOL% (35.7-47.0); Immature Granulocytes % 0.3 %; Immature Granulocytes Absolute 0.02 #; Lymphocytes # 0.9 10*3/uL (1.4-4.0); Lymphocytes % 12.4 % (21.3-54.2); Mean Corpuscular HGB Conc 30.4 GM/DL (32-36); Mean Corpuscular Volume 93.8 FL (87-102); Mean Platelet Volume 10.7 FL (9.6-12.0); Monocytes % 1.3 % (1.7-12.7); Neutrophils % 85.9 % (38.7-73.9); Platelet Count 266 T/CUMM (130-400); Red Blood Count 4.21 MC/CUMM (3.8-5.5); White Blood Count 6.9 T/CUMM (4-12)
[2021-02-21 06:31] LABS: Calcium 9.3 MG/DL (8.5-10.1); Osmolality,Calculated 278.5 MOS/KG (273-304)
[2021-02-21] MEDS: INSULIN REGULAR 100 UNIT/ML SUBCUT SCH ×4 (08:24→21:38)
[2021-02-21] MEDS ORDERED: ACETAMINOPHEN 500 MG TABLET PO ONE (13:54)
[2021-02-21 15:30] LABS: Barbiturates Screen,Urine Negative (Negative); Benzodiazepines Screen,Urine Negative (Negative); Cannabinoid Screen,Urine Negative (Negative); Opiate Screen,Urine Negative (Negative); Phencyclidine Screen,Urine Negative (Negative)
[2021-02-21] MEDS: ENOXAPARIN 40 MG/0.4 ML SYRINGE SUBCUT SCH (21:36)
[2021-02-21] MEDS: MORPHINE 2 MG/1 ML SYRINGE IV PRN (22:22)
[2021-02-22] MEDS: ALBUTEROL/IPRATROPIUM 3 ML NEB RESP TX SCH ×4 (02:39→20:01)
[2021-02-22] MEDS: INSULIN REGULAR 100 UNIT/ML SUBCUT SCH ×4 (07:48→21:24)
[2021-02-22] MEDS ORDERED: CYCLOBENZAPRINE 7.5 MG PO PRN (13:34)
[2021-02-22] MEDS: ASPIRIN EC 81 MG TABLET PO SCH (14:19)
[2021-02-22] MEDS: SPIRONOLACTONE 25 MG TABLET PO SCH (14:19)
[2021-02-22] MEDS: MORPHINE 2 MG/1 ML SYRINGE IV PRN (16:33)
[2021-02-22] MEDS: SACUBITRIL/VALSARTAN 49-51 MG TABLET PO SCH (21:24)
[2021-02-22] MEDS: carvediloL 6.25 MG TABLET PO SCH (21:24)
[2021-02-22] MEDS: ENOXAPARIN 40 MG/0.4 ML SYRINGE SUBCUT SCH (21:24)
[2021-02-22] MEDS: FUROSEMIDE 80 MG TABLET PO SCH (21:24)
[2021-02-23] MEDS: ALBUTEROL/IPRATROPIUM 3 ML NEB RESP TX SCH ×4 (00:55→19:32)
[2021-02-23] MEDS: ASPIRIN EC 81 MG TABLET PO SCH ×2 (04:42→10:01)
[2021-02-23 05:33] LABS: Calcium 9.1 MG/DL (8.5-10.1); Potassium 4.3 MMOL/L (3.5-5.1)
[2021-02-23] MEDS: INSULIN REGULAR 100 UNIT/ML SUBCUT SCH ×3 (07:40→15:53)
[2021-02-23] MEDS ORDERED: ASPIRIN EC 81 MG TABLET PO SCH (09:00)
[2021-02-23] MEDS ORDERED: SPIRONOLACTONE 25 MG TABLET PO SCH (09:00)
[2021-02-23] MEDS: FUROSEMIDE 80 MG TABLET PO SCH ×2 (09:55→20:39)
[2021-02-23] MEDS: SPIRONOLACTONE 25 MG TABLET PO SCH (09:56)
[2021-02-23] MEDS: carvediloL 6.25 MG TABLET PO SCH ×2 (09:56→20:39)
[2021-02-23] MEDS: SACUBITRIL/VALSARTAN 49-51 MG TABLET PO SCH ×2 (09:56→20:38)
[2021-02-23] MEDS: MORPHINE 2 MG/1 ML SYRINGE IV PRN (17:54)
[2021-02-23] MEDS: ENOXAPARIN 40 MG/0.4 ML SYRINGE SUBCUT SCH (20:39)
[2021-02-24] MEDS: ALBUTEROL/IPRATROPIUM 3 ML NEB RESP TX SCH ×4 (01:15→19:38)
[2021-02-24] MEDS: INSULIN REGULAR 100 UNIT/ML SUBCUT SCH ×5 (02:45→21:22)
[2021-02-24] MEDS: carvediloL 6.25 MG TABLET PO SCH ×2 (09:03→21:22)
[2021-02-24] MEDS: FUROSEMIDE 80 MG TABLET PO SCH ×2 (09:03→21:22)
[2021-02-24] MEDS: SPIRONOLACTONE 25 MG TABLET PO SCH (09:03)
[2021-02-24] MEDS: ASPIRIN EC 81 MG TABLET PO SCH (09:04)
[2021-02-24] MEDS: SACUBITRIL/VALSARTAN 49-51 MG TABLET PO SCH ×2 (09:04→21:22)
[2021-02-24 12:18] LABS: ABG Base Excess 9.5 MMOL/L (-2.5-2.5); ABG HCO3 33.2 MMOL/L (20-26); ABG Oxygen Saturation 95.7 % (95-100); ABG PCO2 64.9 MM HG (35-48); ABG PH 7.368 (7.35-7.45); ABG PO2 82.4 MM HG (80-95); ABG TCO2 33.7 MMOL/L (23-27)
[2021-02-24] MEDS: MORPHINE 2 MG/1 ML SYRINGE IV PRN (14:54)
[2021-02-24] MEDS: ENOXAPARIN 40 MG/0.4 ML SYRINGE SUBCUT SCH (21:22)
[2021-02-25] MEDS: ALBUTEROL/IPRATROPIUM 3 ML NEB RESP TX SCH ×4 (00:55→19:50)
[2021-02-25] MEDS: MORPHINE 2 MG/1 ML SYRINGE IV PRN ×2 (02:13→10:50)
[2021-02-25] MEDS: INSULIN REGULAR 100 UNIT/ML SUBCUT SCH ×4 (08:18→21:52)
[2021-02-25] MEDS: ASPIRIN EC 81 MG TABLET PO SCH (08:58)
[2021-02-25] MEDS: FUROSEMIDE 80 MG TABLET PO SCH ×2 (08:58→20:29)
[2021-02-25] MEDS: SACUBITRIL/VALSARTAN 49-51 MG TABLET PO SCH ×2 (08:58→20:29)
[2021-02-25] MEDS: SPIRONOLACTONE 25 MG TABLET PO SCH (08:58)
[2021-02-25] MEDS: carvediloL 6.25 MG TABLET PO SCH ×2 (08:58→20:29)
[2021-02-25] MEDS: ENOXAPARIN 40 MG/0.4 ML SYRINGE SUBCUT SCH (20:30)
[2021-02-26] MEDS: ALBUTEROL/IPRATROPIUM 3 ML NEB RESP TX SCH ×4 (01:00→18:59)
[2021-02-26 04:22] LABS: ABG Base Excess 13.8 MMOL/L (-2.5-2.5); ABG HCO3 37.6 MMOL/L (20-26); ABG Oxygen Saturation 96.9 % (95-100); ABG PCO2 62.6 MM HG (35-48); ABG PH 7.425 (7.35-7.45); ABG PO2 88.2 MM HG (80-95); ABG TCO2 36.8 MMOL/L (23-27); Allen Test Positive; Pt O2 Delivery Device CPAP
[2021-02-26 07:50] LABS: Basophils % 0.6 % (0.0-0.8); Eosinophils # 0.1 10*3/uL (0.0-0.87); Eosinophils % 0.9 % (0.00-10.9); Hematocrit 34.6 VOL% (35.7-47.0); Hemoglobin 10.6 GM/DL (12.0-16.0); Immature Granulocytes % 0.1 %; Immature Granulocytes Absolute 0.01 #; Lymphocytes # 1.5 10*3/uL (1.4-4.0); Lymphocytes % 22.1 % (21.3-54.2); Mean Corpuscular HGB Conc 30.6 GM/DL (32-36); Mean Corpuscular Volume 91.5 FL (87-102); Mean Platelet Volume 9.4 FL (9.6-12.0); Monocytes % 12.9 % (1.7-12.7); Neutrophils % 63.4 % (38.7-73.9); Platelet Count 292 T/CUMM (130-400); Red Blood Count 3.78 MC/CUMM (3.8-5.5); Red Cell Distribution Width 13.7 % (9.3-17.3); White Blood Count 6.7 T/CUMM (4-12)
[2021-02-26 08:06] LABS: Osmolality,Calculated 266.2 MOS/KG (273-304); Potassium 3.5 MMOL/L (3.5-5.1)
[2021-02-26] MEDS: INSULIN REGULAR 100 UNIT/ML SUBCUT SCH ×4 (08:12→22:25)
[2021-02-26] MEDS: carvediloL 6.25 MG TABLET PO SCH ×2 (09:17→22:24)
[2021-02-26] MEDS: SACUBITRIL/VALSARTAN 49-51 MG TABLET PO SCH ×2 (09:17→22:23)
[2021-02-26] MEDS: FUROSEMIDE 80 MG TABLET PO SCH ×2 (09:17→22:24)
[2021-02-26] MEDS: ASPIRIN EC 81 MG TABLET PO SCH (09:17)
[2021-02-26] MEDS: SPIRONOLACTONE 25 MG TABLET PO SCH (09:18)
[2021-02-26] MEDS: ENOXAPARIN 40 MG/0.4 ML SYRINGE SUBCUT SCH (22:23)
[2021-02-27] MEDS: ALBUTEROL/IPRATROPIUM 3 ML NEB RESP TX SCH ×4 (00:15→18:08)
[2021-02-27 05:30] LABS: ABG Base Excess 12.6 MMOL/L (-2.5-2.5); ABG HCO3 36.4 MMOL/L (20-26); ABG Oxygen Saturation 97.2 % (95-100); ABG PCO2 57.3 MM HG (35-48); ABG PH 7.443 (7.35-7.45); ABG PO2 90.4 MM HG (80-95); ABG TCO2 35.1 MMOL/L (23-27)
[2021-02-27] MEDS: INSULIN REGULAR 100 UNIT/ML SUBCUT SCH ×4 (08:35→21:21)
[2021-02-27] MEDS: ASPIRIN EC 81 MG TABLET PO SCH (09:36)
[2021-02-27] MEDS: carvediloL 6.25 MG TABLET PO SCH ×2 (09:37→21:20)
[2021-02-27] MEDS: SPIRONOLACTONE 25 MG TABLET PO SCH (09:37)
[2021-02-27] MEDS: SACUBITRIL/VALSARTAN 49-51 MG TABLET PO SCH ×2 (09:37→21:20)
[2021-02-27] MEDS: FUROSEMIDE 80 MG TABLET PO SCH ×2 (09:37→21:21)
[2021-02-27] MEDS: MORPHINE 2 MG/1 ML SYRINGE IV PRN (12:44)
[2021-02-27] MEDS: ENOXAPARIN 40 MG/0.4 ML SYRINGE SUBCUT SCH (21:21)
[2021-02-28] MEDS: ALBUTEROL/IPRATROPIUM 3 ML NEB RESP TX SCH ×4 (00:20→19:48)
[2021-02-28] MEDS: ASPIRIN EC 81 MG TABLET PO SCH (08:20)
[2021-02-28] MEDS: SACUBITRIL/VALSARTAN 49-51 MG TABLET PO SCH (08:20)
[2021-02-28] MEDS: FUROSEMIDE 80 MG TABLET PO SCH (08:20)
[2021-02-28] MEDS: SPIRONOLACTONE 25 MG TABLET PO SCH (08:21)
[2021-02-28 08:47] LABS: Basophils % 0.6 % (0.0-0.8); Eosinophils # 0.1 10*3/uL (0.0-0.87); Hemoglobin 11.4 GM/DL (12.0-16.0); Immature Granulocytes % 0.2 %; Immature Granulocytes Absolute 0.01 #; Lymphocytes # 1.2 10*3/uL (1.4-4.0); Lymphocytes % 24.8 % (21.3-54.2); Mean Corpuscular HGB Conc 30.8 GM/DL (32-36); Mean Corpuscular Volume 93.4 FL (87-102); Mean Platelet Volume 9.9 FL (9.6-12.0); Monocytes % 12.6 % (1.7-12.7); Neutrophils % 60.8 % (38.7-73.9); Platelet Count 326 T/CUMM (130-400); Red Blood Count 3.96 MC/CUMM (3.8-5.5); Red Cell Distribution Width 13.7 % (9.3-17.3)
[2021-02-28] MEDS: INSULIN REGULAR 100 UNIT/ML SUBCUT SCH ×4 (08:57→22:25)
[2021-02-28] MEDS: carvediloL 6.25 MG TABLET PO SCH (08:57)
[2021-02-28 08:58] LABS: Calcium 9.3 MG/DL (8.5-10.1); Osmolality,Calculated 270.1 MOS/KG (273-304); Potassium 3.7 MMOL/L (3.5-5.1)
[2021-02-28 10:00] LABS: ABG Base Excess 11.7 MMOL/L (-2.5-2.5); ABG HCO3 35.4 MMOL/L (20-26); ABG Oxygen Saturation 96.6 % (95-100); ABG PH 7.452 (7.35-7.45); ABG PO2 84.3 MM HG (80-95); ABG TCO2 33.7 MMOL/L (23-27)
[2021-02-28] MEDS: DOCUSATE SODIUM 100 MG CAPSULE PO PRN (16:48)
[2021-02-28] MEDS: ENOXAPARIN 40 MG/0.4 ML SYRINGE SUBCUT SCH (18:34)
[2021-03-01] MEDS: FUROSEMIDE 80 MG TABLET PO SCH ×3 (00:08→20:49)
[2021-03-01] MEDS: SACUBITRIL/VALSARTAN 49-51 MG TABLET PO SCH ×3 (00:08→20:49)
[2021-03-01] MEDS: carvediloL 6.25 MG TABLET PO SCH ×3 (00:08→20:50)
[2021-03-01] MEDS: ALBUTEROL/IPRATROPIUM 3 ML NEB RESP TX SCH ×4 (01:05→20:02)
[2021-03-01] MEDS: INSULIN REGULAR 100 UNIT/ML SUBCUT SCH ×4 (08:32→20:50)
[2021-03-01] MEDS: SPIRONOLACTONE 25 MG TABLET PO SCH (08:51)
[2021-03-01] MEDS: ASPIRIN EC 81 MG TABLET PO SCH (08:52)
[2021-03-01] MEDS: ENOXAPARIN 40 MG/0.4 ML SYRINGE SUBCUT SCH (20:50)
[2021-03-02] MEDS: ALBUTEROL/IPRATROPIUM 3 ML NEB RESP TX SCH ×4 (00:50→19:05)
[2021-03-02 05:33] LABS: Basophils % 0.6 % (0.0-0.8); Eosinophils # 0.1 10*3/uL (0.0-0.87); Eosinophils % 1.2 % (0.00-10.9); Hematocrit 36.4 VOL% (35.7-47.0); Hemoglobin 11.3 GM/DL (12.0-16.0); Immature Granulocytes % 0.2 %; Immature Granulocytes Absolute 0.01 #; Lymphocytes # 1.6 10*3/uL (1.4-4.0); Lymphocytes % 31.8 % (21.3-54.2); Mean Corpuscular Volume 92.9 FL (87-102); Mean Platelet Volume 9.9 FL (9.6-12.0); Monocytes % 13.7 % (1.7-12.7); Neutrophils % 52.5 % (38.7-73.9); Platelet Count 338 T/CUMM (130-400); Red Blood Count 3.92 MC/CUMM (3.8-5.5); Red Cell Distribution Width 13.9 % (9.3-17.3); White Blood Count 4.9 T/CUMM (4-12)
[2021-03-02 06:12] LABS: Calcium 9.3 MG/DL (8.5-10.1); Osmolality,Calculated 270.1 MOS/KG (273-304); Potassium 3.9 MMOL/L (3.5-5.1)
[2021-03-02 06:52] LABS: Hypochromasia Slight; Microcytosis Slight; Ovalocytes Few
[2021-03-02 06:53] LABS: Polychromasia Slight
[2021-03-02] MEDS: INSULIN REGULAR 100 UNIT/ML SUBCUT SCH ×3 (08:16→16:25)
[2021-03-02] MEDS: ASPIRIN EC 81 MG TABLET PO SCH (08:44)
[2021-03-02] MEDS: SPIRONOLACTONE 25 MG TABLET PO SCH (08:44)
[2021-03-02] MEDS: DOCUSATE SODIUM 100 MG CAPSULE PO PRN (08:44)
[2021-03-02] MEDS: FUROSEMIDE 80 MG TABLET PO SCH (08:45)
[2021-03-02] MEDS: carvediloL 6.25 MG TABLET PO SCH (08:45)
[2021-03-02] MEDS: SACUBITRIL/VALSARTAN 49-51 MG TABLET PO SCH (08:45)
[2021-03-02] MEDS: ENOXAPARIN 40 MG/0.4 ML SYRINGE SUBCUT SCH (18:31)
[2021-03-03] MEDS: ALBUTEROL/IPRATROPIUM 3 ML NEB RESP TX SCH ×3 (00:40→12:13)
[2021-03-03] MEDS: INSULIN REGULAR 100 UNIT/ML SUBCUT SCH ×3 (00:53→16:30)
[2021-03-03] MEDS: carvediloL 6.25 MG TABLET PO SCH ×2 (00:53→08:58)
[2021-03-03] MEDS: SACUBITRIL/VALSARTAN 49-51 MG TABLET PO SCH ×2 (00:53→08:56)
[2021-03-03] MEDS: FUROSEMIDE 80 MG TABLET PO SCH ×2 (00:54→08:58)
[2021-03-03] MEDS: SPIRONOLACTONE 25 MG TABLET PO SCH (08:55)
[2021-03-03] MEDS: ASPIRIN EC 81 MG TABLET PO SCH (08:56)
[2021-03-03 12:26] VITALS: BP 98/69
== END 2021-03-03 15:30 | disposition home health service (06) | DRG 189 ==
LOC: EDUNIT# → EDBD → N.ED 15:35 → N.EDINP 19:25 → SUATTDRO 19:25 → N.EDINP 02-21 03:06 → N.TELES 02-21 03:33
PROVIDERS: ADMIT Internal Medicine Geriatric Medicine; ATTEND Internal Medicine Geriatric Medicine